=== PATIENT | female | born 1995 | race Caucasian/White ===

== ENCOUNTER 2017-10-17 07:03 | Emergency (ER) | payer OTHER ==
[2017-10-17] MEDS: ONDANSETRON 4 MG INJ IV (08:03)
[2017-10-17] MEDS: morphine 4 MG/ML VIAL IV (08:04)
[2017-10-17] MEDS: SOD CHLORIDE 0.9% 1,000 ML IV (08:10)
[2017-10-17 08:19] LABS: ADD MAN DIFF? NO
[2017-10-17 08:23] LABS: WHITE BLOOD COUNT 9.1 10^3/ul (4.8-10.8)
[2017-10-17 08:23] LABS: BASOPHIL # 0.1 10^3/ul (0.0-0.1); BASOPHILS % 0.6 % (0.0-2.0); EOSINOPHILS # 0.1 10^3/ul (0.0-0.5); EOSINOPHILS % 0.6 % (0.0-7.0); HEMATOCRIT 41.3 % (37.0-47.0); HEMOGLOBIN 13.9 g/dl (12.0-16.0); LYMPHOCYTES % 21.7 % (15.0-51.0); MEAN CORPUSCULAR HGB CONC 33.7 g/dl (32.0-37.0); MEAN CORPUSCULAR VOLUME 83.3 fl (82.0-101.0); MEAN PLATELET VOLUME 11.5 fl (7.4-10.4); MONOCYTE # 0.7 10^3/ul (0.3-0.9); MONOCYTES % 7.4 % (0.0-11.0); NEUTROPHIL # 6.3 10^3/ul (1.6-7.5); NEUTROPHILS % 68.9 % (39.0-77.0); PLATELET COUNT 209 10^3/UL (140-415); RED BLOOD COUNT 4.96 10^6/ul (4.20-5.40); RED CELL DISTRIBUTION WIDTH 12.9 % (11.5-14.5)
[2017-10-17 08:34] LABS: ADD UMIC YES; UR ASCORBIC ACID NEGATIVE (NEGATIVE); UR BILIRUBIN (Dip) NEGATIVE (NEGATIVE); UR BLOOD (Dip) 2+ mg/dL (NEGATIVE); UR CLARITY CLEAR (CLEAR); UR COLOR YELLOW (YELLOW); UR GLUCOSE (Dip) NEGATIVE (NEGATIVE); UR KETONES (Dip) NEGATIVE (NEGATIVE); UR LEUKOCYTE ESTERASE (Dip) NEGATIVE Leu/ul (NEGATIVE); UR NITRITE (Dip) NEGATIVE (NEGATIVE); UR RBC 3 /HPF (0-5); UR SPECIFIC GRAVITY (Dip) 1.017 (1.003-1.030); UR TOTAL PROTEIN (Dip) NEGATIVE (NEGATIVE); UR UROBILINOGEN (Dip) NEGATIVE (NEGATIVE); UR WBC 0 /HPF (0-5)
[2017-10-17 08:40] LABS: ALANINE AMINOTRANSFERASE 41 IU/L (13-69); ALBUMIN/GLOBULIN RATIO 1.51; ALKALINE PHOSPHATASE 104 IU/L (42-121); ANION GAP 22 (8-16); ASPARTATE AMINO TRANSFERASE 22 IU/L (15-46); BILIRUBIN,INDIRECT 0.1 mg/dl (0-1.1); BILIRUBIN,TOTAL 0.1 mg/dl (0.2-1.3); BLOOD UREA NITROGEN 12 mg/dl (7-20); CALCIUM 10.2 mg/dl (8.4-10.2); CARBON DIOXIDE 25 mmol/L (21-31); CHLORIDE 103 mmol/L (97-110); CREATININE 0.62 mg/dl (0.44-1.00); GLUCOSE 112 mg/dl (70-220); LIPASE 93 U/L (23-300); POTASSIUM 3.9 mmol/L (3.5-5.1); SODIUM 146 mmol/L (135-144); TOTAL PROTEIN 8.3 g/dl (6.1-8.1)
[2017-10-17] MEDS: KETOROLAC 30 MG INJ IV (08:47)
[2017-10-17] MEDS: HYDROmorphONE 1 MG/ML SYG IV (08:48)
== END 2017-10-17 10:12 | disposition home or self-care (01) ==
LOC: FTE 07:03
DX: K80.20 Calculus of gallbladder without cholecystitis without obstruction (principal)
CPT/HCPCS: 36415; 71045; 76705; 80053; 81001; 83690; 85025; 96374; 96375; 99285-25

== ENCOUNTER 2017-12-06 12:52 | Observation (INO) | payer OTHER ==
[2017-12-06] MEDS: SOD CHLORIDE 0.9% 1,000 ML IV (12:00)
[2017-12-06] MEDS: CEFAZOLIN 1 GM/50 ML (PMX) 50 ML IVPB (12:00)
[~2017-12-06 12:52] MED LIST: BUPIVACAINE 0.25%/EPI (MDV) 50 ML VIAL INJ; CEFAZOLIN 1 GM INJ
[2017-12-06] MEDS ORDERED: FENTAnyl 50 MCG/ML VIAL ×2 (16:00→17:34)
[2017-12-06] MEDS ORDERED: SUCCINYLCHOLINE CHLORIDE 100 MG/5 ML SYG IV (16:27)
[2017-12-06] MEDS ORDERED: LIDOCAINE 100 MG SYRINGE (16:27)
[2017-12-06] MEDS ORDERED: PROPOFOL 20 ML (16:27)
[2017-12-06] MEDS ORDERED: ROCURONIUM 50 MG INJ (16:27)
[2017-12-06] MEDS ORDERED: ROPIVACAINE 0.2% 20 ML VIAL (16:28)
[2017-12-06] MEDS ORDERED: SUGAMMADEX SODIUM 200 MG/2 ML VIAL IV (16:28)
[2017-12-06] MEDS ORDERED: HYDROCODONE/APAP (5/325) TAB PO ×2 (17:30→22:27)
[2017-12-06] MEDS ORDERED: ALBUTEROL 0.083% (NEB) 2.5 MG/3 ML AMP HHN (17:30)
[2017-12-06] MEDS ORDERED: METOCLOPRAMIDE 10 MG INJ IV (17:30)
[2017-12-06] MEDS ORDERED: MEPERIDINE 25 MG INJ IV (17:30)
[2017-12-06] MEDS ORDERED: HYDROmorphONE (0.2 MG/ML) 10ML SYG IV (17:30)
[2017-12-06] MEDS ORDERED: KETOROLAC 30 MG INJ IV (17:30)
[2017-12-06] MEDS ORDERED: morphine 2 MG INJ IV ×2 (17:30→22:32)
[2017-12-06] MEDS ORDERED: FENTAnyl 50 MCG/ML VIAL IV (17:30)
[2017-12-06] MEDS ORDERED: ONDANSETRON 4 MG INJ IV ×2 (17:30→22:32)
[2017-12-06] MEDS ORDERED: IBUPROFEN 600 MG TAB PO (17:30)
[2017-12-06] MEDS: FENTAnyl 50 MCG/ML VIAL IV ×2 (17:46→17:53)
[2017-12-06] MEDS: ONDANSETRON 4 MG INJ IV (17:52)
[2017-12-06] MEDS: HYDROmorphONE (0.2 MG/ML) 10ML SYG IV ×4 (17:56→18:45)
[2017-12-06] MEDS: HYDROCODONE/APAP (5/325) TAB PO ×2 (18:30→22:34)
[2017-12-06] MEDS: DIPHENHYDRAMINE 50 MG INJ IV (19:26)
[2017-12-07] MEDS: HYDROCODONE/APAP (5/325) TAB PO ×2 (03:01→11:08)
[2017-12-07] MEDS: DIPHENHYDRAMINE 25 MG CAP PO (11:07)
== END 2017-12-07 11:42 | disposition home or self-care (01) ==
LOC: SDS 12:52 → MS1 21:01
PROVIDERS: Surgery
DX: K80.10 Calculus of gallbladder with chronic cholecystitis without obstruction (principal); E66.01 Morbid (severe) obesity due to excess calories; Z68.39 Body mass index [BMI] 39.0-39.9, adult
CPT/HCPCS: 47562; 84703; 88304